=== PATIENT | female | born 1950 | race Caucasian/White ===

== ENCOUNTER 2016-03-13 11:35 | Emergency (ER) | payer BC ==
[~2016-03-13] VITALS: Ht 170.2 cm; Wt 94.1 kg
[2016-03-13 11:38] VITALS: BP 127/98
[2016-03-13] MEDS ORDERED: AUGMENTIN875 MG PO (13:03)
[2016-03-13] MEDS ORDERED: TYLENOL WITH C1 EACH PO (13:03)
[2016-03-13] MEDS ORDERED: LAMICTAL150 M1 PO (13:04)
[2016-03-13] MEDS ORDERED: SEROQUEL300 MG PO (13:04)
[2016-03-13] MEDS ORDERED: DUEXIS 800-26.1 EACH PO (13:04)
[2016-03-13] MEDS ORDERED: ULTRAM50 MG PO (13:32)
[2016-03-13] MEDS ORDERED: NAPROSYN500 MG PO (13:32)
[2016-03-13] MEDS ORDERED: CLEOCIN300 MG PO (13:32)
== END 2016-03-13 13:47 | disposition home or self-care (01) ==
LOC: EME 11:35
DX: K08.89 Other specified disorders of teeth and supporting structures (principal); R51 Headache; R22.0 Localized swelling, mass and lump, head
CPT/HCPCS: 99281; 99283